=== PATIENT | male | born 1950 | race Caucasian/White ===

== ENCOUNTER 2020-05-22 10:50 | Outpatient (CLI) | payer MEDICARE, OTHER, SELFPAY ==
--- NOTE | ~2020-05-22 | US_ITS ---
EXAMINATION: US carotid duplex BI DATE: 05/22/2020 11:18 INDICATION: Carotid stenosis. TECHNIQUE: Grayscale, color Doppler, and pulsed Doppler images of the cervical carotid arteries were obtained. The degree of vessel stenosis is placed in one of the following categories: normal, <50%, 5 0-69%, >=70% but less than near-occlusion, near-occlusion, or total occlusion. Note that percent sten osis relative to normal distal artery lumen diameter is indirectly measured from velocity measurement s as described by Lukas, et al. Radiology 2003; 229:[id number]. COMPARISON: None. FINDINGS: RIGHT: The right common carotid artery (CCA) peak systolic velocity (PSV) is 68 cm/s. The right internal car otid artery (ICA) PSV is 59 cm/s. The right ICA end-diastolic velocity (EDV) is 17 cm/s. The right IC A/CCA PSV ratio is 0.9. Grayscale and color Doppler images yield an estimate of <50% diameter reducti on from plaque in the ICA. The external carotid artery (ECA) PSV is 95 cm/s. There is antegrade flow in the right vertebral artery. LEFT: The left CCA PSV is 63 cm/s. The left ICA PSV is 85 cm/s. The left ICA EDV is 29 cm/s. The left ICA/C CA PSV ratio is 1.4. Grayscale and color Doppler images yield an estimate of <50% diameter reduction from plaque in the ICA. The ECA PSV is 85 cm/s. There is antegrade flow in the left vertebral artery. IMPRESSION: 1. <50% stenosis in the right internal carotid artery. 2. <50% stenosis in the left internal carotid artery. Reviewed, dictated and finalized at location A. [employer]
== END 2020-05-22 10:51 | disposition home or self-care (01) ==
LOC: CHSIMG 10:57
PROVIDERS: PCP Internal Medicine; Visit Provider Internal Medicine
DX: I65.22 Occlusion and stenosis of left carotid artery (principal)
CPT/HCPCS: 93880

== ENCOUNTER 2020-12-04 07:37 | Outpatient (CLI) | payer MEDICARE, OTHER, SELFPAY ==
--- NOTE | ~2020-12-04 | XR_ITS ---
EXAMINATION: XR lumbar spine 2-3V DATE: 12/04/2020 08:04 INDICATION: Low back pain TECHNIQUE: Anteroposterior and lateral views of the lumbar spine, and cone-down lateral view of the l umbosacral junction were obtained. COMPARISON: None. FINDINGS: There are 2 mm of retrolisthesis of L5 on S1. Bone alignment is otherwise normal. There is moderate loss of intervertebral disc space height throughout the lumbar spine and severe disc space l oss at L5-S1. The vertebral body heights are maintained. There is moderate multilevel facet osteoarth ritis. Small degenerative osteophytes project from the anterior endplates of multiple vertebral isabell s. Calcified atherosclerosis is noted. IMPRESSION: 1. Moderate lumbar spondylosis without acute findings. Reviewed, dictated and finalized at location A.
--- NOTE | ~2020-12-04 | US_ITS ---
US arterial ankle brachial ind INDICATION: Peripheral arterial disease. Hip pain. TECHNIQUE: Segmental pressures and plethysmographic and Doppler waveforms of the brachial and lower e xtremity arteries were obtained. COMPARISON: None. FINDINGS: Right and left brachial artery pressures of 138 mm Hg and 150 mm Hg, respectively, are concordant (no rmal difference <= 30 mmHg). The right ankle-brachial index (ROSAURA) is 1.14 (normal >= 0.9-1.0). The right great toe-brachial index (TBI) is 0.81 (normal >= 0.60). The left ROSAURA is 1.04. The left TBI is 0.68. IMPRESSION: 1. Normal bilateral ankle and toe brachial indices. Reviewed, dictated and finalized at location B.
--- NOTE | ~2020-12-04 | XR_ITS ---
EXAMINATION: XR hip BI wo pelvis INDICATION: Bilateral hip pain TECHNIQUE: Two views of each hip are obtained. COMPARISON: None available FINDINGS: Bone alignment is normal. There is no fracture. Calcified atherosclerosis is noted. There a re phleboliths in the pelvis. IMPRESSION: 1. No acute osseous abnormality. Reviewed, dictated and finalized at location A.
--- NOTE | ~2020-12-04 | US_ITS ---
EXAMINATION: US aorta DATE: 12/04/2020 08:57 INDICATION: Aortic aneurysm with risk factors of hypertension, obesity, hypercholesterolemia, prior s moking and intermittent claudication. TECHNIQUE: Grayscale, color Doppler, and pulsed Doppler images of the aorta and common iliac arteries were obtained. COMPARISON: None. FINDINGS: The proximal aorta measures 1.9 cm. The mid aorta measures 2.5 cm. The distal aorta measures 2.3 cm. The region of the aortic bifurcation and bilateral iliac arteries is obscured by shadowing bowel gas. IMPRESSION: 1. Normal caliber abdominal aorta. Reviewed, dictated and finalized at location A.
== END 2020-12-04 07:38 | disposition home or self-care (01) ==
LOC: CHSIMG 07:38
PROVIDERS: PCP Internal Medicine; Visit Provider Internal Medicine
DX: I73.9 Peripheral vascular disease, unspecified (principal); M25.552 Pain in left hip; M25.551 Pain in right hip
CPT/HCPCS: 72100; 73521; 76775; 93922

== ENCOUNTER 2020-12-11 07:15 | Outpatient (CLI) | payer MEDICARE, OTHER, SELFPAY ==
--- NOTE | ~2020-12-11 | MR_ITS ---
EXAMINATION: MR lumbar spine wo con EXAM DATE: 12/11/2020 12:13 INDICATION: Low back pain for 15 years. Lower extremity numbness and tingling for 5 years. TECHNIQUE: Multi-sequential, multiplanar MR images of the lumbar spine were obtained without contrast . Sagittal T1, T2, T2 fat saturation images. Axial T2 weighted images. There is no prior study for comparison. FINDINGS: There is 3 mm retrolisthesis L5 on S1 with moderate to severe loss of this disc height. Mod erate loss of the other lumbar disc heights. The vertebral bodies are otherwise aligned. The conus me dullaris terminates at the L1/2 level and has normal signal intensity and morphology. There are no s uspicious marrow signal abnormalities. There is lower abdominal aortic aneurysm measuring up to about 4 cm in diameter. Level by level evaluation: T12-L1: Disc does not extend beyond the endplate margin. Facet arthropathy: Mild. Neural foraminal stenosis: No stenosis. Central canal stenosis: No stenosis. L1-L2: There is a mild diffuse disc bulge. Facet arthropathy: Mild to moderate. Neural foraminal stenosis: No stenosis. Central canal stenosis: No stenosis. L2-L3: There is a mild to moderate diffuse disc bulge. Facet arthropathy: Mild to moderate. Neural foraminal stenosis: Mild bilateral. Central canal stenosis: Mild. L3-L4: There is a moderate diffuse disc bulge. Facet arthropathy: Mild to moderate. Neural foraminal stenosis: Mild to moderate bilateral. Central canal stenosis: Mild to moderate. L4-L5: There is a moderate diffuse disc bulge. Facet arthropathy: Moderate left, mild to moderate right. Neural foraminal stenosis: Moderate left, mild to moderate right. Central canal stenosis: Mild to moderate. L5-S1: There is a mild to moderate diffuse disc bulge. Facet arthropathy: Moderate bilateral. Neural foraminal stenosis: Moderate left, mild to moderate right. Central canal stenosis: Mild. IMPRESSION: 1. Abdominal aortic 4.0 cm aneurysm. Assuming this is incidentally, one-year follow-up CT abdomen (n oncontrast scan sufficient for evaluating aortic size). 2. Overall moderate lumbar spondylosis. Reviewed, dictated and finalized at location A. IMPRESSION: 1. Abdominal aortic 4.0 cm aneurysm. Assuming this is incidentally, one-year f ollow-up CT abdomen (noncontrast scan sufficient for evaluating aortic size). 2. Overall moderate lumbar spondylosis.
== END 2020-12-11 07:16 | disposition home or self-care (01) ==
LOC: CHSIMG 07:16
PROVIDERS: PCP Internal Medicine; Visit Provider Internal Medicine
DX: M54.5 Low back pain (principal)
CPT/HCPCS: 72148

== ENCOUNTER 2021-02-19 05:54 | Inpatient (IN) | payer MEDICARE, OTHER, SELFPAY ==
[2021-02-19] VITALS (20 sets, daily range): BP systolic 126–157; BP diastolic 69–99; PULSE 72–109; RESP 13–23; TEMP 35.9–36.9; O2SAT 91–96; BMI 38.2; BMI 38.3
--- NOTE | ~2021-02-19 | CT_ITS ---
EXAMINATION: CT abdomen pelvis w con EXAM DATE: 02/19/2021 08:56 INDICATION: LLQ pain . TECHNIQUE: Spiral CT of the abdomen and pelvis was performed following intravenous injection of 100 m L Omnipaque 350. Axial, coronal and sagittal images of the abdomen and pelvis were reviewed. The do se-length product (DLP) for this examination was 1496.41 mGy-cm. The exposure was tailored according to patient size (auto mA exposure control), and iterative reconstruction (ASIR) was used as addition al dose reduction technique. There is no prior study for comparison. FINDINGS: The liver, spleen, adrenal glands and pancreas are unremarkable. Gallbladder is unremarkab le. No biliary obstruction. Portal and splenic veins are patent. Kidneys enhance symmetrically. T here is no hydronephrosis. There is a 2 cm homogeneously hyperdense lesion in the lower pole of the l eft kidney posteromedial cortex, similar density smaller lesion lower pole right kidney. These are mo st likely hemorrhagic cysts but ultrasound should be confirmatory of fluid versus solid mass. The pr ostate is unremarkable. Small right inguinal fat-containing hernia. The bladder is unremarkable. Th ere is no retroperitoneal or pelvic lymphadenopathy. There is a peripherally hyperdense centrally low density structure within the mid ileum with moderate ly distended small bowel proximal to this and nearly collapsed ileum distal (axial image 145-150, cor onal images 55-62). This is irregularly shaped, measures about 2.5 cm. Appearance is most consistent with gallstone ileus or obstruction from other foreign body-gallbladder is unremarkable. There is jejunal diverticulosis. There is appendicolith within an otherwise unremarkable appendix. Th ere is moderate sigmoid predominant colonic diverticulosis. There is no adjacent inflammatory change to suggest diverticulitis. There is small amount of colonic stool. No free intraperitoneal gas. The heart is normal in size. There are no pericardial or pleural effusions. The lung bases are unre markable. There are no osteoblastic or osteolytic lesions identified. IMPRESSION: 1. Dilated small bowel with intraluminal filling defect at transition point, could be gallstone ileus or obstruction from other foreign body. 2. Colonic and jejunal diverticulosis. 3. Couple of small renal lesions most likely hemorrhagic cyst. Ultrasound should be confirmatory. Reviewed, dictated and finalized at location A. IMPRESSION: 1. Dilated small bowel with intraluminal filling defect at transition point, co uld be gallstone ileus or obstruction from other foreign body. 2. Colonic and jejunal diverticulosis. 3. Couple of small renal lesions most likely hemorrhagic cyst. Ultrasound shoul d be confirmatory.
--- NOTE | ~2021-02-19 | XR_ITS ---
EXAMINATION: XR abdomen NG/feed tube insert EXAM DATE: 02/19/2021 10:20 INDICATION: ng placement confirmation . Small bowel obstruction, possibly from gallstone (gallstone i leus). TECHNIQUE: Frontal projection(s) of the abdomen for interpretation. There is no prior study for ever lucero. FINDINGS: Feeding tube tip overlies gastric bubble. Side port is at the gastroesophageal junction. C ould be safely advanced 5 cm. Several loops of significantly distended air-filled small bowel in the abdomen, obstruction. Mild to moderate thoracolumbar spondylosis. IMPRESSION: 1. Feeding tube tip in stomach but could be safely advanced 5 cm. 2. Small bowel obstruction. Reviewed, dictated and finalized at location A.
--- NOTE | ~2021-02-19 | XR_ITS ---
EXAMINATION: XR abdomen/kub 1V DATE: 02/20/2021 05:49 INDICATION: Small bowel obstruction. TECHNIQUE: A supine view of the abdomen on 2 radiographs was obtained. COMPARISON: CT abdomen and pelvis 03/21/2021 FINDINGS: There are multiple dilated loops of small bowel containing oral contrast. The colon is deco mpressed. The nasogastric tube tip is in the stomach. IMPRESSION: 1. Persistently dilated small bowel, consistent with small bowel obstruction. Reviewed, dictated and finalized at location A.
--- NOTE | ~2021-02-19 | XR_ITS ---
EXAMINATION: XR sm bowel follow through WS EXAM DATE: 02/19/2021 17:06 INDICATION: Small bowel obstruction, possibly gallstone ileus. TECHNIQUE: Recooperer radiograph was acquired. Omnipaque/water soluble solution administered for small karolina wel exam performed by radiologist Papo Harper M.D.. Approximately 350 mL of Omnipaque 350 solution wa s injected through nasogastric tube. Pulsed dose reduction fluoroscopy was used with fluoroscopic ti me of 0.0. Images were obtained over 5.5 hours. A total of 11 images obtained for the exam. Correlati on is made to CT abdomen pelvis earlier same date. FINDINGS: There is severe small bowel dilation. The jejunal loops progressively opacified over 5.5 ho urs, but contrast did not reach the colon. Could not identify any normal calibered small bowel at the final image. Consider obtaining a follow-up KUB in the morning. There is jejunal diverticulosis. IMPRESSION: Small bowel obstruction. Jejunal diverticulosis. Reviewed, dictated and finalized at location A.
[2021-02-19] MEDS: SODIUM CHLORIDE 0.9% IV 1,000 ML 999 ML IV CONT (06:49)
[2021-02-19] MEDS: ONDANSETRON INJ 4 MG/2 ML VIAL IV PUSH (06:50)
[2021-02-19 07:10] LABS: Basophils Percent Auto 0.2 % (0.2-1.2); Immature Granulocyte Absolute 0.04 K/mm3 (0.00-0.031); Immature Granulocyte Percent A 0.4 % (0-0.5); Lymphocytes Absolute Auto 0.58 K/mm3 (0.9-3.2); Lymphocytes Percent Auto 5.9 % (18.3-44.2); Mean Corpuscular Hemoglobin 31.1 pg (26-34); Mean Corpuscular Volume 91.3 fl (80-100); Mean Platelet Volume 11.5 fl (7.4-10.4); Monocytes Absolute Auto 0.6 K/mm3 (0.1-0.6); Monocytes Percent Auto 6.5 % (2.6-8.5); Neutrophils Absolute Auto 8.5 K/mm3 (1.3-6.7); Platelet Count Result 178 k/mm3 (150-375); Red Blood Count 5.15 M/mm3 (4.6-6.20); White Blood Count 9.8 K/mm3 (4.5-10.0)
[2021-02-19 07:41] LABS: INR 1.2; Partial Thromboplastin Time 29.2 SECONDS (22.3-36.8); Prothrombin Time 15.1 Seconds (11.1-14.7)
--- NOTE | 2021-02-19 07:50 | ED.ABDPAIN ---
HPI - Abdominal Pain General Chief Complaint: Abdominal Pain Stated Complaint: bad stomach pains Time Seen by Provider: 02/19/21 07:02 History of Present Illness HPI narrative: Patient is a 71-year-old male who presents ER with abdominal discomfort starting yesterday. Reports its diffuse and cramping. Has focal pain in the left lower quadrant. No radiation. Feels like he is constipated but has had a small bowel movement last 24 hours. No increase in belching. No fevers or chills or sweats. Symptoms started 12 hours after having [employer] for dinner. He ate the riblets. Has history of colonoscopies but denies history of diverticulitis. No urinary frequency urgency or dysuria. Without hematuria. Related Data Home Medications Medication Instructions Recorded Confirmed amlodipine 2.5 mg DAILY 02/19/21 02/19/21 apixaban [Eliquis] 5 mg PO BID 02/19/21 02/19/21 atorvastatin 40 mg DAILY 02/19/21 02/19/21 hydrochlorothiazide 12.5 mg DAILY 02/19/21 02/19/21 lisinopril 40 mg BID 02/19/21 02/19/21 metoprolol tartrate 100 mg BID 02/19/21 02/19/21 Allergies Allergy/AdvReac Type Severity Reaction Status Date / Time No Known Allergies Allergy Verified 02/19/21 06:18 Review of Systems Review of Systems: All systems reviewed & are unremarkable except as noted in HPI and below Constitutional: Constitutional: Denies chills and Denies fever(s) ENT: Denies nasal congestion and Denies sore throat Cardiovascular: Cardiovascular: Denies chest pain and Denies radiating jaw, neck or arm pain Respiratory: Respiratory: Denies cough, Denies dyspnea and Denies wheezing Gastrointestinal: Gastrointestinal: Reports abdominal pain, Reports bloating, Reports constipation, Denies diarrhea, Denies nausea and Denies vomiting Genitourinary: Genitourinary: Denies hematuria, Denies dysuria and Denies urinary frequency PMF Past Medical History Medical History Atrial fibrillation Hyperlipidemia Hypertension Surgical History Surgical History No history of previous surgery Social History Social History Smoking status: Former smoker Tobacco type: cigarettes Second hand tobacco smoke exposure: No Alcohol intake: never Substance use: never Spiritual care concerns: No Exam Narrative: GENERAL: Well-appearing, well-nourished, and in no acute distress. HEAD: Normocephalic, atraumatic. ENT: Mucous membranes moist. CHEST: Clear to auscultation. No respiratory distress. HEART: Regular rate and rhythm. Normal peripheral pulses. ABDOMEN: Soft, TTP LLQ w/o guarding, nondistended. EXTREMITIES: Normal range of motion. No edema. SKIN: Warm, dry, no rash. NEURO: Alert and oriented x3. PSYCH: Normal mood and affect. Course Course Emergency Course: Discussed with general surgery who would like to consult on the patient. NG tube in place. Admitted to hospitalist service. Vital Signs Vital signs: Vital Signs Temperature 97.7 F 02/19/21 06:09 Pulse Rate 81 02/19/21 06:09 Respiratory Rate 22 H 02/19/21 06:09 Blood Pressure 157/99 H 02/19/21 06:09 Pulse Oximetry 95 02/19/21 06:09 Temperature 98.5 F 02/19/21 14:00 Pulse Rate 87 02/19/21 14:00 Respiratory Rate 20 02/19/21 14:00 Blood Pressure 130/75 02/19/21 14:00 Pulse Oximetry 91 02/19/21 14:00 MDM - Abdominal Pain Lab Data Result diagrams: 02/19/21 06:49 02/19/21 07:44 Labs: Lab Results 02/19/21 02/19/21 02/19/21 Range/Units 06:49 06:49 07:31 WBC 9.8 (4.5-10.0) K/mm3 RBC 5.15 (4.6-6.20) M/mm3 Hgb 16.0 (14.0-18.0) g/dL Hct 47.0 (42.0-52.0) % MCV 91.3 (80-100) fl MCH 31.1 (26-34) pg MCHC 34.0 (32-36) g/dl RDW 13.0 (11.5-14.5) % Plt Count 178 (150-375) k/mm3 MPV 11.5 H (7.4-10.4) fl Immature Gr
[2021-02-19 07:58] LABS: Add Urine Microscopic? YES; Appearance Urine Clear (Clear); Bilirubin Urine Negative (Negative); Blood Urine Negative (Negative); Calcium Oxalate Crystals Urine Present /hpf; Color Urine Yellow (Yellow); Glucose Urine UA Negative (Negative); Hyaline Casts Urine 20-29 /lpf; Ketones Urine Negative (Negative); Leukocyte Esterase Ur Negative LEU/UL (Negative); Mucus Urine Few /lpf; Nitrate Urine Negative (Negative); Protein Urine 1+ mg/dL (Negative); Specific Grav Ur 1.027 (1.001-1.035); WBC Urine 0-3 /hpf
[2021-02-19] MEDS: MORPHINE SULFATE (*CRX) 4 MG/ML INJ IV PUSH ×3 (08:08→16:17)
[2021-02-19 08:15] LABS: Alanine Aminotransferase 23 U/L (4-50); Albumin Level 3.9 g/dL (3.5-5.1); Alkaline Phosphatase 59 U/L (38-126); Anion Gap 9 mmol/L (8-16); Aspartate Amino Transferase 23 U/L (17-59); Bilirubin,Total 1.6 mg/dL (0.2-1.3); Blood Urea Nitrogen 25 mg/dL (9-20); Calcium 9.5 mg/dL (8.4-10.2); Carbon Dioxide 27 mmol/L (22-30); Chloride 98 mmol/L (98-107); Estimated CRCL calculation 89 ml/min; Estimated Glomerular Filt Rate > 60; Glucose 146 mg/dL (65-110); Lipase 34 U/L (23-300); Sodium 134 mmol/L (137-145)
--- NOTE | 2021-02-19 10:35 | PM.CNGS ---
Assessment and Plan Assessment and plan (1) Small bowel obstruction: Code(s): K56.609 - Unspecified intestinal obstruction, unspecified as to partial versus complete obstruction Status: Acute Assessment and Plan: likely from foreign body (?bone), looks to be in proximal ileum, will get SBS, GI consult, NG decompression (2) Atrial fibrillation: Code(s): I48.91 - Unspecified atrial fibrillation Status: Acute Assessment and Plan: hold anticoagulation for now (3) AAA (abdominal aortic aneurysm): Code(s): I71.4 - Abdominal aortic aneurysm, without rupture Status: Acute Assessment and Plan: following c vascular surgery History of Present Illness Consult details Consult date: 02/19/21 Reason for consult: abdominal pain Requesting physician: Willie Nassar MD Narrative: Pt is a 71 y/o M presenting to ED c/o severe, crampy abdominal pain since last night. Pt reports pain is most severe in lower abdomen, L>R. Pt reports associated nausea and emesis x 1. Pt did have small BM overnight. Pt reports he had riblets at [employer] for dinner yesterday. Pt denies any previous episodes, denies any previous abdominal surgeries. Review of Systems Constitutional: Constitutional: Denies anorexia, Denies body ache(s), Denies chills, Denies fatigue, Denies fever(s), Denies increased appetite, Denies lethargy, Denies malaise, Reports poor appetite, Denies weakness, Denies weight gain and Denies weight loss Eyes: Eyes: Reports no additional eye complaints ENT: Reports system reviewed and no additional complaints, except as documented Cardiovascular: Cardiovascular: Reports no additional cardiovascular complaints Respiratory: Respiratory: Reports no additional respiratory complaints Gastrointestinal: Gastrointestinal: Reports as per HPI, Reports abdominal pain, Denies belching, Reports bloating, Reports constipation, Reports GI cramping, Reports nausea, Reports vomiting and Denies hematemesis Genitourinary: Genitourinary: Reports no additional male genitourinary complaints Musculoskeletal: Musculoskeletal: Reports no additional musculoskeletal complaints Integumentary/Breasts: Skin/Breast: Reports system reviewed and no additional complaints, except as docu Neurologic: Reports system reviewed and no additional complaints, except as documented Psychiatric: Psychiatric: Reports no additional psychiatric complaints Endocrine: Endocrine: Reports no additional endocrine complaints Hematologic/Lymphatic: Hematologic/Lymphatic: Reports no additional hematologic/lymphatic complaints Allergic/Immunologic: Allergic/Immunologic: Reports no additional allergic/immunologic complaints [facility] Past Medical History Medical History Atrial fibrillation Hyperlipidemia Hypertension Surgical History Surgical History No history of previous surgery Social History Social History Smoking status: Never smoker Comments Pt denies any FH of colorectal cancers, inflammatory bowel disease Meds Home Medications and Allergies Home Medications Medication Instructions Recorded Confirmed Type amlodipine 2.5 mg DAILY 02/19/21 History apixaban [Eliquis] mg 02/19/21 History atorvastatin 40 mg DAILY 02/19/21 History hydrochlorothiazide 12.5 mg DAILY 02/19/21 02/19/21 History lisinopril 40 mg DAILY 02/19/21 History metoprolol tartrate 100 mg BID 02/19/21 History Allergies Allergy/AdvReac Type Severity Reaction Status Date / Time No Known Allergies Allergy Verified 02/19/21 06:18 Vital Signs Vital Signs - 24 hr 02/19/21 06:09 02/19/21 06:46 02/19/21 06:47 Temperature 36.5 C Pulse Rate 81 78 77 Respiratory Rate 22 H 23 H 19 Blood Pressure 157/99 H 129/91 H Pulse Oximetry 95 95 02/19/21 07:00 02/19/21 07:01
[2021-02-19] MEDS: SODIUM CHLORIDE 0.9% IV 1,000 ML 125 ML IV CONT ×2 (10:38→21:09)
--- NOTE | 2021-02-19 11:05 | PC.NURSE ---
Pt to radiology for small bowel series and then directly to 344. Attempted to call report and the nurse was unavailable to take report. Staff advised that pt will be coming to floor from radiology.
--- NOTE | 2021-02-19 11:09 | PM.IMHP ---
H&P: HPI History of Present Illness Date/Time: 02/19/21 11:09 Chief Complaint: Abdominal pain Narrative: This is a very pleasant 71-year-old gentleman with past medical history of hypertension, hyperlipidemia, atrial fibrillation, and history TIA, who presents to the emergency room this morning with abdominal pain. He reports he was in his usual state of health but 2 nights ago he had a good dinner with ribs. Next morning he started feeling abdominal pain. This was associated with some intermittent nausea and vomiting. Given continued pain, he presented to the emergency department this morning. On presentation his vitals were blood pressure 157/99 heart rate 81, temperature 97.7?, pulse ox 95% on room air. Blood work showed WBC 9.8, hemoglobin 16, platelets 178, sodium 134, potassium 4, chloride 90, bicarb 27, BUN 25, creatinine 0.8, calcium 9.5, total bilirubin 1.6, otherwise normal LFTs. He underwent CT scan of the abdomen that showed dilated small-bowel loops with intraluminal filling defect a transition point, could be a gallstone ileus vs foreign body. Colonic and jejunal diverticulosis. He was seen by General surgery, NG tube was placed and is currently on low intermittent suction. Review of Systems Review of Systems: All systems reviewed & are unremarkable except as noted in HPI and below PMFSH Past Medical History Medical History (Updated 02/20/21 @ 14:17 by Oscar Mcdonald MD) AAA (abdominal aortic aneurysm) Atrial fibrillation CVA (cerebral vascular accident) 2016 Hyperlipidemia Hypertension Surgical History Surgical History No history of previous surgery Social History Social History Smoking status: Former smoker Tobacco type: cigarettes Second hand tobacco smoke exposure: No Alcohol intake: never Substance use: never Spiritual care concerns: No Meds Home Medications and Allergies Home Medications Medication Instructions Recorded Confirmed Type amlodipine 2.5 mg DAILY 02/19/21 02/20/21 History apixaban [Eliquis] 5 mg PO BID 02/19/21 02/19/21 History atorvastatin 40 mg DAILY 02/19/21 02/19/21 History hydrochlorothiazide 12.5 mg DAILY 02/19/21 02/19/21 History lisinopril 40 mg BID 02/19/21 02/19/21 History metoprolol tartrate 100 mg BID 02/19/21 02/20/21 History Allergies Allergy/AdvReac Type Severity Reaction Status Date / Time No Known Allergies Allergy Verified 02/19/21 06:18 Vital Signs Vital Signs - 24 hr 02/19/21 06:09 02/19/21 06:46 02/19/21 06:47 Temperature 97.7 F Pulse Rate 81 78 77 Respiratory Rate 22 H 23 H 19 Blood Pressure 157/99 H 129/91 H Pulse Oximetry 95 95 02/19/21 07:00 02/19/21 07:01 02/19/21 07:15 Temperature Pulse Rate 73 83 94 Respiratory Rate 13 18 18 Blood Pressure 141/88 H Pulse Oximetry 02/19/21 07:16 02/19/21 07:30 02/19/21 07:45 Temperature Pulse Rate 76 72 84 Respiratory Rate 14 17 19 Blood Pressure 132/85 Pulse Oximetry 02/19/21 07:46 02/19/21 07:47 02/19/21 08:00 Temperature Pulse Rate 75 86 86 Respiratory Rate 14 23 H 23 H Blood Pressure Pulse Oximetry 02/19/21 08:01 02/19/21 08:04 02/19/21 11:07 Temperature Pulse Rate 75 84 Respiratory Rate 20 16 Blood Pressure 148/85 H 137/88 Pulse Oximetry 96 Exam Narrative: Gen: Alert, NAD Abd: Soft, mildly TTP diffusely, BS+ Heart: RRR Lungs: CTAB Ext: No bilateral lower extremity edema Skin: No abnormality Eyes: anicteric ENT: MMM H&P: Results Labs Labs: Short CBC 02/19/21 Range/Units 06:49 WBC 9.8 (4.5-10.0) K/mm3 Hgb 16.0 (14.0-18.0) g/dL Hct 47.0 (42.0-52.0) % Plt Count 178 (150-375) k/mm3 BMP 02/19/21 07:44 Sodium 134 L Potassium 4.0 Chloride 98 Carbon Dioxide 27 BUN 25 H Creatinine 0.80 Glucose 146 H Calcium 9.5 Liver Function 02/19/21 R
--- NOTE | 2021-02-19 12:54 | ADMGEN ---
This patient, Diego Hall, was admitted to Medical Room 344-01. Patient oriented to hospital policies and general routines including ID bracelet, bed and alarms, visiting hours, pain management, procedures, bathroom and other care routines, personal items, smoking policy, room service/diet, and visiting hours. Information on how to activate the Rapid Response Team has been discussed. Patient/Family are encouraged to report perceived risks to care and to ask questions if they do not understand what they are told or what they should do.
[2021-02-19] MEDS: LABETALOL HCL INJ 100 MG/20 ML VIAL 20 MG IV PUSH ×2 (13:52→17:54)
--- NOTE | 2021-02-19 14:35 | WPDGICN ---
Assessment and Plan Assessment and plan (1) Small bowel obstruction: Code(s): K56.609 - Unspecified intestinal obstruction, unspecified as to partial versus complete obstruction Status: Acute Assessment and Plan: he had 1 episode of vomiting. He has continuing abdominal pain consistent with possible obstruction. There is a transition point with dilated small bowel proximal to the apparent foreign body. If this is some sort of food I would expected to have autodigested by now. Small-bowel series is in progress. This may help us determine whether he has perhaps a fixed lesion such as hamartoma, polyp, neoplasm. However I would have expected a less acute and more fluctuating onset of symptoms if he had a growth in his ileum. Surgery is following him in it appears that he will need some sort of surgical intervention to resolve this. I explained to him that endoscopic approach is not feasible because of the location. GI Consult Note Consult date/time: 02/19/21 14:35 HPI: Diego Hall is a 71 year old male was admitted this morning through the emergency room. He states that for 3 days he has had pain in the mid abdomen, somewhat towards the left. The pain fluctuates but is fairly constant; he also has lost his appetite. He has not felt like eating at all for the last day or 2. He did vomit once or twice 2 days ago bringing up dark almost coffee-ground type material. He has never had an ulcer. He has not had any digestive diseases. He has had colonoscopies but is not sure whether he had had polyps removed. His symptoms began hours after he had eaten at a restaurant where he had eaten 'riblets' and he is jeannette He is on Eliquis for atrial fibrillation that he may have swallowed a bone. His CT scan that show a foreign body in the mid ileum and this is also seen on a subsequent plain film. He denies fever or chills. He is not aware of any family history of digestive diseases except for the fact that his sister from some sort of liver cancer. Review of Systems Review of Systems: All systems reviewed & are unremarkable except as noted in HPI and below [facility] Past Medical History Medical History Atrial fibrillation Hyperlipidemia Hypertension Surgical History Surgical History No history of previous surgery Social History Social History Smoking status: Former smoker Tobacco type: cigarettes Second hand tobacco smoke exposure: No Alcohol intake: never Substance use: never Spiritual care concerns: No Meds Home Medications and Allergies Home Medications Medication Instructions Recorded Confirmed Type amlodipine 2.5 mg DAILY 02/19/21 02/19/21 History apixaban [Eliquis] 5 mg PO BID 02/19/21 02/19/21 History atorvastatin 40 mg DAILY 02/19/21 02/19/21 History hydrochlorothiazide 12.5 mg DAILY 02/19/21 02/19/21 History lisinopril 40 mg BID 02/19/21 02/19/21 History metoprolol tartrate 100 mg BID 02/19/21 02/19/21 History Allergies Allergy/AdvReac Type Severity Reaction Status Date / Time No Known Allergies Allergy Verified 02/19/21 06:18 Vital Signs Vital Signs - 24 hr 02/19/21 06:09 02/19/21 06:46 02/19/21 06:47 Temperature 36.5 C Pulse Rate 81 78 77 Respiratory Rate 22 H 23 H 19 Blood Pressure 157/99 H 129/91 H Pulse Oximetry 95 95 02/19/21 07:00 02/19/21 07:01 02/19/21 07:15 Temperature Pulse Rate 73 83 94 Respiratory Rate 13 18 18 Blood Pressure 141/88 H Pulse Oximetry 02/19/21 07:16 02/19/21 07:30 02/19/21 07:45 Temperature Pulse Rate 76 72 84 Respiratory Rate 14 17 19 Blood Pressure 132/85 Pulse Oximetry 02/19/21 07:46 02/19/21 07:47 02/19/21 08:00 Temperature Pulse Rate 75 86 86 Respiratory Rate 14 23 H 23 H Blood Pressure Pulse Oximetry
[2021-02-20] VITALS (19 sets, daily range): BP systolic 122–161; BP diastolic 67–127; PULSE 77–108; RESP 12–20; TEMP 36–37.2; O2SAT 90–99
[2021-02-20] MEDS: LABETALOL HCL INJ 100 MG/20 ML VIAL 20 MG IV PUSH ×2 (00:31→17:41)
[2021-02-20] MEDS: SODIUM CHLORIDE 0.9% IV 1,000 ML 125 ML IV CONT ×2 (05:06→17:35)
[2021-02-20 07:30] LABS: Anion Gap 7 mmol/L (8-16); Blood Urea Nitrogen 33 mg/dL (9-20); Calcium 9.5 mg/dL (8.4-10.2); Carbon Dioxide 33 mmol/L (22-30); Chloride 96 mmol/L (98-107); Estimated CRCL calculation 80 ml/min; Estimated Glomerular Filt Rate > 60; Glucose 167 mg/dL (65-110); Potassium 3.8 mmol/L (3.4-5.0); Sodium 136 mmol/L (137-145)
--- NOTE | 2021-02-20 08:40 | PM.PNGS ---
Progress Note: A&P Assessment and Plan (1) Small bowel obstruction: Code(s): K56.609 - Unspecified intestinal obstruction, unspecified as to partial versus complete obstruction Status: Acute Assessment and Plan: SBS shows no passage of contrast into colon, will need urgent exploration at this point, cont NG decompression, NPO Subjective Subjective Date/Time Seen: 02/20/21 08:40 feels better this am, really no pain, still distended Review of Systems Review of Systems: All systems reviewed & are unremarkable except as noted in HPI and below Exam Const: General: cooperative, well developed, acute distress mild and tired appearing Nutritional Appearance: obese Orientation/consciousness: patient oriented x3 Limitations: no limitations Resp: Effort & Inspection: normal respiratory effort Auscultation: clear to auscultation bilaterally Cardio: Rate: regular rate Rhythm: regular rhythm GI: Inspection: normal to inspection and distended GI Palp: Yes Soft to palpation and No Tenderness to palpation present (GI) Objective Data Vital Signs Vital Signs: Vital Signs - 24 hr 02/19/21 11:07 02/19/21 13:52 02/19/21 14:00 Temperature 36.9 C Pulse Rate 84 80 87 Respiratory Rate 16 20 Blood Pressure 137/88 130/75 Pulse Oximetry 96 91 02/19/21 17:51 02/19/21 17:54 02/19/21 19:42 Temperature 35.9 C L Pulse Rate 109 H 104 H 80 Respiratory Rate 16 16 Blood Pressure 141/90 H 126/69 Pulse Oximetry 94 93 02/20/21 00:29 02/20/21 00:31 02/20/21 05:06 Temperature 36.0 C L Pulse Rate 85 85 Respiratory Rate 18 Blood Pressure 122/82 124/67 Pulse Oximetry 91 02/20/21 05:09 Temperature Pulse Rate 85 Respiratory Rate Blood Pressure Pulse Oximetry Intake/Output Intake/Output: Intake & Output 02/17/21 02/18/21 02/19/21 02/20/21 23:59 23:59 23:59 23:59 Intake Total 2100 1100 Output Total 1200 2000 Balance 900 -900 Meds/Results Medications: Active Medications Generic Name Dose Route Start Last Admin Trade Name Freq PRN Reason Stop Dose Admin Acetaminophen 1,000 mg in 100 mls @ 400 mls/hr 02/19/21 09:59 09/09/21 05:29 Ofirmev 1,000 Mg Ivpb IVPB 02/20/21 09:58 Infused Q6H PRN Infusion Mild Pain (1-3) or Fever Sodium Chloride 1,000 mls @ 125 mls/hr 02/19/21 10:00 02/20/21 05:06 Normal Saline Iv IV CONT 125 mls/hr .Q8H SEVEN Administration Labetalol HCl 20 mg 02/19/21 12:00 02/20/21 05:09 Labetalol Hcl Inj 100 Mg/20 Ml Vial IV PUSH Not Given Q6HR SEVEN Morphine Sulfate 4 mg 02/19/21 09:59 02/19/21 16:17 Morphine Sulfate (*Crx) 4 Mg/Ml Inj IV PUSH 4 mg Q2H PRN Administration Pain Rated 7-10 Ondansetron HCl 4 mg 02/19/21 09:59 Ondansetron Inj 4 Mg/2 Ml Vial IV PUSH Q4H PRN Nausea Radiology Results: ITS Impressions Abdomen/Pelvis CT 02/19/21 09:03 IMPRESSION: 1. Dilated small bowel with intraluminal filling defect at transition point, could be gallstone ileus or obstruction from other foreign body. 2. Colonic and jejunal diverticulosis. 3. Couple of small renal lesions most likely hemorrhagic cyst. Ultrasound should be confirmatory. Small Bowel X-Ray 02/19/21 17:09 IMPRESSION: Small bowel obstruction. Jejunal diverticulosis. Abdomen X-Ray 02/20/21 06:48 IMPRESSION: 1. Persistently dilated small bowel, consistent with small bowel obstruction. Labs Labs: Laboratory Results - last 24 hr 02/20/21 06:10 Sodium 136 L Potassium 3.8 Chloride 96 L Carbon Dioxide 33 H Anion Gap 7 L BUN 33 H Creatinine 1.00 Estim Creat Clear Calc 80 Estimated GFR > 60 Glucose 167 H Calcium 9.5
--- NOTE | 2021-02-20 08:46 | PC.NURSE ---
Patient to OR per bed. IV saline locked, NGT clamped. Report given to KEARA Andres.
--- NOTE | 2021-02-20 09:34 | WPDANESEPPF ---
Anes - Initial Pre Proc Eval Procedure: Operation Date: 02/20/21 14:00 Proposed Procedures p Exploratory Laparotomy, Possible Bowel Resection - Margareth West MD Date/Time: 02/20/21 09:34 Surgeon: Adeline Blount MD Pre Op Diagnosis: small bowel obstruction Patient Data Age: 71 Gender: M Height: 1.8 m Weight: 124.7 kg Last Vital Signs Temp 36.8 C 02/20/21 09:04 Pulse 95 02/20/21 09:04 Resp 18 02/20/21 09:04 BP 153/95 H 02/20/21 09:04 Pulse Ox 95 02/20/21 09:04 Allergies Allergy/AdvReac Type Severity Reaction Status Date / Time No Known Allergies Allergy Verified 02/19/21 06:18 Home Medications Medication Instructions Recorded Confirmed Type amlodipine 2.5 mg DAILY 02/19/21 02/19/21 History apixaban [Eliquis] 5 mg PO BID 02/19/21 02/19/21 History atorvastatin 40 mg DAILY 02/19/21 02/19/21 History hydrochlorothiazide 12.5 mg DAILY 02/19/21 02/19/21 History lisinopril 40 mg BID 02/19/21 02/19/21 History metoprolol tartrate 100 mg BID 02/19/21 02/19/21 History Laboratory Tests 02/20/21 06:10 Sodium 136 mmol/L L mmol/L (137-145) Potassium 3.8 mmol/L mmol/L (3.4-5.0) Chloride 96 mmol/L L mmol/L (98-107) Carbon Dioxide 33 mmol/L H mmol/L (22-30) Anion Gap 7 mmol/L L mmol/L (8-16) BUN 33 mg/dL H mg/dL (9-20) Creatinine 1.00 mg/dL mg/dL (0.7-1.3) Estim Creat Clear Calc 80 ml/min ml/min Estimated GFR > 60 (59 - ) Glucose 167 mg/dL H mg/dL (65-110) Calcium 9.5 mg/dL mg/dL (8.4-10.2) Patient hx anesthesia problems: none Family hx anesthesia problems: none [facility] Past Medical History Medical History (Updated 02/20/21 @ 09:35 by Rob Navarrete DO) AAA (abdominal aortic aneurysm) Atrial fibrillation CVA (cerebral vascular accident) 2016 Hyperlipidemia Hypertension Surgical History Surgical History No history of previous surgery Social History Social History Smoking status: Former smoker Tobacco type: cigarettes Second hand tobacco smoke exposure: No Alcohol intake: never Substance use: never Spiritual care concerns: No Anes - Eval Final PreProcedure Day of Procedure 02/20/21 09:34 Patient weight: obese Heart: regular rate and rhythm Lungs: clear to auscultation and normal air movement Airway: Mallampati scale class II Neurological: alert and oriented Last oral intake: >/= 8 hours ASA classification: III Emergent: no Anesthetic plan: proceed Anesthesia type and monitoring: general ETT and standard monitoring Informed Consent: The patient's anesthetic plan and its attendant risks and benefits were discussed with the patient/family/POA. Questions were solicited and answers provided to the satisfaction of the patient/family/POA.
[2021-02-20] MEDS: LACTATED RINGERS 1,000 ML 30 ML IV CONT ×3 (09:54→12:02)
[2021-02-20] MEDS: ceFAZolin 3 GM/D5W 100 ML 100 ML IVPB (10:25)
--- NOTE | 2021-02-20 11:22 | W.PM.PROC2 ---
Procedure Note - Detailed Date of Procedure 02/20/21 Pre-op Diagnosis small bowel obstruction Post-op Diagnosis same Procedure Performed Exploratory laparotomy, small-bowel resection of approximately 10 cm Surgeon Margareth West MD Anesthesia general Indications 71-year-old male presenting to the emergency department with small-bowel obstruction. Imaging consistent with foreign body, food bezoar Findings mechanical obstruction in proximal ileum secondary to likely food bezoar Description of Procedure The patient was taken to the operating room and placed in the supine position. After adequate induction general anesthesia, the patient was prepped and draped in the normal sterile fashion. A time-out was then done to verify the patient's identity, as well as the procedure being performed. I began by making a midline incision in the periumbilical region. This was taken down into the peritoneal cavity. Upon getting into the peritoneum, was noted to be a moderate amount of free ascitic fluid. It was also noted that the small intestine was very dilated. Then began by running the entire small intestine. Again the small intestine was noted to be very dilated especially proximally. Upon examining the proximal ileum, there was noted to be an obstruction at this point. Distal to this obstruction, the small bowel was noted to be much more collapsed and normal in caliber. Examination of the colon was unremarkable. Given the distention especially near the area of obstruction, the decision was made to do a small-bowel resection at this area. A 55 REINIER stapler was used to transect both proximally and distal to the area of obstruction, measuring approximately 10 cm. Once this area was transected, I used the LigaSure device to take down the mesenteric attachments. The specimen was then opened on the back table and the obstructing mass looked to be a food bezoar. It will now be sent to pathology for further review. I then performed a [id number] functional end-to-end anastomosis between the 2 areas of small bowel. Of note, there was some mild spillage during the creation of the anastomosis to to the enormous amount of back pressure in the proximal small intestine. This was done with a 55 REINIER stapler followed by a TX 60 stapler. The mesenteric defect was closed with a 2-0 silk suture. I then copiously irrigated the abdominal cavity. No other pathology was seen. I then closed the fascial defect with a 0 looped PDS suture. The skin was then closed with skin helder. The patient tolerated the procedure well and was extubated in the operating room postoperatively. He will be transferred to the recovery room in stable condition. Estimated Blood Loss 50 Urine Output 100 Drains No Packing No Pathology yes Complications No immediate complications Condition stable Disposition PACU
[2021-02-20] MEDS: fentaNYL CITRATE INJ (*CRX) 100 MCG/2 ML VIAL 25 MCG IV PUSH ×3 (11:34→12:31)
--- NOTE | 2021-02-20 12:25 | SUR.PHASEI ---
1115 AMBER JASSO ADMINISTERED 3 MG METAPROLOL, THEN 2 MG METAPROLOL FOR ELEVATED BP'S WHICH IMPROVED BP.
--- NOTE | 2021-02-20 13:20 | PC.NURSE ---
Patient returned from surgery.
--- NOTE | 2021-02-20 13:52 | PM.IMPN ---
Progress Note: A&P Assessment and Plan (1) Small bowel obstruction: Code(s): K56.609 - Unspecified intestinal obstruction, unspecified as to partial versus complete obstruction Status: Acute Assessment and Plan: Patient presents to the ED with complaints of abdominal pain. CT Abd/Pelvis showing dilated small bowel with intraluminal filling defect at transition point, could be gallstone ileus or obstruction from other foreign body. GI and GS consulted. SBFT showing SBO. GI felt this was too distal to reach endoscopically. Repeat imaging today coninues to show SBO so patient was brought to the OR and underwent exploratory laparotomy with small-bowel resection of approximately 10 cm. Routine post-operative care. Pain management. IS. (2) Atrial fibrillation: Code(s): I48.91 - Unspecified atrial fibrillation Status: Acute Assessment and Plan: No EKGs or Echo performed here. Heart rate remains well controlled. Metoprolol and Eliquis on hold due to surgery and NPO status. Resume metoprolol when he can eat. Hold Eliquis and resume when appropriate. Continue Labetalol. [id number] at least 4. HAS-BLED 1. He is probably high risk for bleeding from the surgery with adding anticoagulation. Bridging recommended with [id number] 5 or 6. Will discuss with GS but hold off for now on full AC. (3) History of TIA (transient ischemic attack): Code(s): Z86.73 - Personal history of transient ischemic attack (TIA), and cerebral infarction without residual deficits Status: Acute Assessment and Plan: Hx of TIA 5 years ago without recurrence. As above. Continue Eliquis when appropriate. (4) Hypertension: Code(s): I10 - Essential (primary) hypertension Status: Acute Assessment and Plan: Patient's blood pressure was reviewed on 02/20 Blood pressure remains well controlled. Will continue current medications as Labetalol. Resume home blood pressure medications when able. (5) Hyperlipidemia: Code(s): E78.5 - Hyperlipidemia, unspecified Status: Acute Assessment and Plan: Stable. Continue home statin when able. (6) AAA (abdominal aortic aneurysm): Code(s): I71.4 - Abdominal aortic aneurysm, without rupture Status: Acute Assessment and Plan: MRI Lumbar spine in November 2020 showing 4.0cm AAA (Ao US not accurate per radiologist). CT here again showing AAA about 4cm with recommendation for 1 year followup. (7) DVT prophylaxis: Code(s): Z29.9 - Encounter for prophylactic measures, unspecified Status: Acute Assessment and Plan: SCDs Subjective Date/time seen: 02/20/21 13:52 Interval history: 71yo male with AFib, HTN and HLD here for abdominal pain and found to have SBO. Back from the OR now. Pain controlled. No n/v. He has chronic AFib. No hx of episodes of bleeding. No CP or SOB but remains on O2. Exam Narrative: AF 98.4 143/79 83 18 92% Gen - NARD lying semirecumbent in bed HEENT - NGT secured with brown fluid in cannister Chest - clear anteriorly, nml RR CV - irregularly irregular Abd - Soft, hypoactive BS, midline dresing clean, dry and intact - Mahan secured draining clear yellow urine Ext - No pedal edema, 2+ PT pulses Neuro - Alert and oriented. Nonfocal exam. Psych - Nml mood and affect Skin - Warm and dry Objective Data Vital Signs Vital Signs: Vital Signs - 24 hr 02/19/21 14:00 02/19/21 17:51 02/19/21 17:54 Temperature 98.5 F Pulse Rate 87 109 H 104 H Respiratory Rate 20 16 Blood Pressure 130/75 141/90 H Pulse Oximetry 91 94 02/19/21 19:42 02/20/21 00:29 02/20/21 00:31 Temperature 96.7 F L Pulse Rate 80 85 Respiratory Rate 16 Blood Pressure 126/69 122/82 Pulse Oximetry 93 02/20/21 05:06 02/20/21 05:09 02/20/21 09:04 Temperature 96.8 F L 98.2 F Pulse Rate 85 85 95 Respiratory Rate 18 18 Blood Pressure 124/67 153/95 H Pulse Oximetry 91 95 09/0
[2021-02-20] MEDS: ONDANSETRON INJ 4 MG/2 ML VIAL IV PUSH (16:46)
[2021-02-20] MEDS: MORPHINE SULFATE (*CRX) 4 MG/ML INJ IV PUSH (16:46)
[2021-02-21] MEDS: LABETALOL HCL INJ 100 MG/20 ML VIAL 20 MG IV PUSH ×4 (00:09→18:07)
[2021-02-21] MEDS: MORPHINE SULFATE (*CRX) 4 MG/ML INJ IV PUSH ×4 (00:10→18:15)
[2021-02-21 04:13] VITALS: BP 144/90; PULSE 87; RESP 18; TEMP 36.1; O2SAT 96
[2021-02-21] MEDS: SODIUM CHLORIDE 0.9% IV 1,000 ML 125 ML IV CONT (04:16)
[2021-02-21 06:11] LABS: Basophils Percent Auto 0.1 % (0.2-1.2); Eosinophils Percent Auto 0.1 % (0-4.4); Hematocrit 41.5 % (42.0-52.0); Hemoglobin 13.5 g/dL (14.0-18.0); Immature Granulocyte Absolute 0.06 K/mm3 (0.00-0.031); Immature Granulocyte Percent A 0.7 % (0-0.5); Immature Platelet Fraction Pct 6.5 % (0.9-11.2); Lymphocytes Absolute Auto 0.72 K/mm3 (0.9-3.2); Lymphocytes Percent Auto 8.7 % (18.3-44.2); Mean Corpuscular HGB Conc 32.5 g/dl (32-36); Mean Corpuscular Hemoglobin 30.8 pg (26-34); Mean Corpuscular Volume 94.7 fl (80-100); Mean Platelet Volume 11.9 fl (7.4-10.4); Monocytes Absolute Auto 0.8 K/mm3 (0.1-0.6); Monocytes Percent Auto 9.9 % (2.6-8.5); Neutrophils Absolute Auto 6.7 K/mm3 (1.3-6.7); Neutrophils Percent Auto 80.5 % (45.5-73.1); Platelet Count Result 124 k/mm3 (150-375); Red Blood Count 4.38 M/mm3 (4.6-6.20); Red Cell Distribution Width 13.2 % (11.5-14.5); White Blood Count 8.3 K/mm3 (4.5-10.0)
[2021-02-21 06:18] LABS: Anion Gap 2 mmol/L (8-16); Blood Urea Nitrogen 27 mg/dL (9-20); Calcium 8.4 mg/dL (8.4-10.2); Carbon Dioxide 34 mmol/L (22-30); Chloride 101 mmol/L (98-107); Estimated CRCL calculation 80 ml/min; Estimated Glomerular Filt Rate > 60; Glucose 137 mg/dL (65-110); Potassium 3.8 mmol/L (3.4-5.0); Sodium 137 mmol/L (137-145)
[2021-02-21 08:00] VITALS: O2SAT 93
[2021-02-21] MEDS: KCL 20 MEQ/D5/0.9% SOD CHL 1,000 ML 70 ML IV CONT (09:20)
[2021-02-21] MEDS: PANTOPRAZOLE SODIUM IV 40 MG VIAL IV PUSH (09:21)
--- NOTE | 2021-02-21 10:01 | PM.IMPN ---
Progress Note: A&P Assessment and Plan (1) Small bowel obstruction: Code(s): K56.609 - Unspecified intestinal obstruction, unspecified as to partial versus complete obstruction Status: Acute Assessment and Plan: Patient presents to the ED with complaints of abdominal pain. CT Abd/Pelvis showing dilated small bowel with intraluminal filling defect at transition point, could be gallstone ileus or obstruction from other foreign body. GI and GS consulted. SBFT showing SBO. GI felt this was too distal to reach endoscopically. Repeat imaging continues to show SBO so patient was brought to the OR and underwent exploratory laparotomy with small-bowel resection of approximately 10 cm on 02/20/21. Continue routine post-operative care. Pain management. IS. Increase activity. Remove Mahan. Add PPI. Abx per General Surgery. (2) Hypoxia: Code(s): R09.02 - Hypoxemia Status: Acute Assessment and Plan: Patient had O2 requirement post-op period and felt related to atelectasis. Patient still requiring O2 at 3L at the time of my visit. He does not require O2 at home. Will increase activity as tolerated. Encouraged IS use. Check CXR tomorrow if persistent hypoxia. (3) Atrial fibrillation: Code(s): I48.91 - Unspecified atrial fibrillation Status: Acute Assessment and Plan: No EKGs or Echo performed here. Heart rate remains well controlled. Metoprolol and Eliquis on hold due to surgery and NPO status. Resume metoprolol when he can eat. Hold Eliquis and resume when appropriate. Continue Labetalol IV. [id number] at least 4. HAS-BLED 1. He is probably high risk for bleeding from the surgery with adding anticoagulation. Bridging recommended with [id number] 5 or 6. Will discuss with GS but hold off for now on full AC. Add Lovenox for DVT prophylaxis. (4) History of TIA (transient ischemic attack): Code(s): Z86.73 - Personal history of transient ischemic attack (TIA), and cerebral infarction without residual deficits Status: Acute Assessment and Plan: Hx of TIA 5 years ago without recurrence. As above. Continue Eliquis when appropriate. (5) Hypertension: Code(s): I10 - Essential (primary) hypertension Status: Acute Assessment and Plan: Patient's blood pressure was reviewed on 02/21 Blood pressure remains well controlled. Will continue current medications as Labetalol IV. Resume home blood pressure medications when able. (6) Hyperlipidemia: Code(s): E78.5 - Hyperlipidemia, unspecified Status: Acute Assessment and Plan: Stable. Continue home statin when able. (7) AAA (abdominal aortic aneurysm): Code(s): I71.4 - Abdominal aortic aneurysm, without rupture Status: Acute Assessment and Plan: MRI Lumbar spine in November 2020 showing 4.0cm AAA (Ao US in November not accurate per radiologist). CT here again showing AAA about 4cm with recommendation for 1 year followup. (8) DVT prophylaxis: Code(s): Z29.9 - Encounter for prophylactic measures, unspecified Status: Acute Assessment and Plan: SCDs; add Lovenox Subjective Date/time seen: 02/21/21 10:01 Interval history: 71yo male with AFib, HTN and HLD here for abdominal pain and found to have SBO. Pain about 5/10 but tolerable. No CP. Using the IS frequently and up to 1500mL. Not been out of bed yet. No flatus or BMs. No issues overnight per RN. patient does have emphysema has inhaler at home but he is not sure of the name of the inhaler. He smoked 2-3 packs a day for 37 years in 2002. Exam Narrative: AF 97.0 144/90 87 18 96% 3L Gen - NARD lying semirecumbent in bed HEENT - NGT secured with brown fluid in canister Chest - decreased breath sounds in the flanks. Clear anteriorly. Normal respiratory rate CV - irregularly irregular Abd - Soft. Midline dressing clean, dry and intact. quiet - Mahan secured draining clear yellow urine Ext - No
--- NOTE | 2021-02-21 10:23 | PM.PNGS ---
Progress Note: A&P Assessment and Plan (1) Small bowel obstruction: Code(s): K56.609 - Unspecified intestinal obstruction, unspecified as to partial versus complete obstruction Status: Acute Assessment and Plan: doing well, cont NG decompression, await bowel fxn, PT/OT, OOB/IS Subjective Subjective Date/Time Seen: 02/21/21 10:23 feels ok, up to chair this am, [place] out Review of Systems Review of Systems: All systems reviewed & are unremarkable except as noted in HPI and below Exam Const: General: cooperative, comfortable and no acute distress Nutritional Appearance: obese Orientation/consciousness: patient oriented x3 Resp: Effort & Inspection: normal respiratory effort Auscultation: clear to auscultation bilaterally Cardio: Rate: regular rate Rhythm: regular rhythm GI: Inspection: normal to inspection, distended and incision GI Palp: Yes Soft to palpation, Yes Tenderness to palpation present (GI) and No Guarding due to palpation present (GI) Other: soft, sl dist, nathalia TTP, incision C/D/I Objective Data Vital Signs Vital Signs: Vital Signs - 24 hr 02/20/21 11:22 02/20/21 11:35 02/20/21 11:50 Temperature 36.6 C Pulse Rate 94 88 85 Respiratory Rate 18 18 18 Blood Pressure 161/127 H 160/100 H 147/87 H Pulse Oximetry 99 99 99 02/20/21 12:05 02/20/21 12:35 02/20/21 12:50 Temperature Pulse Rate 80 77 83 Respiratory Rate 12 20 20 Blood Pressure 122/95 H 122/84 130/88 Pulse Oximetry 94 94 92 02/20/21 13:15 02/20/21 13:30 02/20/21 14:00 Temperature 36.9 C 36.9 C 37.1 C Pulse Rate 91 83 107 H Respiratory Rate 18 18 18 Blood Pressure 136/77 143/79 H 143/93 H Pulse Oximetry 92 92 92 02/20/21 15:00 02/20/21 17:10 02/20/21 17:41 Temperature 37.2 C Pulse Rate 108 H 87 Respiratory Rate 18 Blood Pressure 147/82 H Pulse Oximetry 90 91 02/20/21 20:00 02/20/21 20:26 02/21/21 04:13 Temperature 36.4 C 36.1 C L Pulse Rate 91 91 87 Respiratory Rate 16 16 18 Blood Pressure 136/88 144/90 H Pulse Oximetry 94 94 96 Intake/Output Intake/Output: Intake & Output 02/18/21 02/19/21 02/20/21 02/21/21 23:59 23:59 23:59 23:59 Intake Total 2100 4800 1100 Output Total 1200 2600 1075 Balance 900 2200 25 Meds/Results Medications: Active Medications Generic Name Dose Route Start Last Admin Trade Name Freq PRN Reason Stop Dose Admin Enoxaparin Sodium 40 mg 02/22/21 09:00 Enoxaparin 40 Mg/0.4 Ml Syringe SUB-Q DAILY SEVEN Piperacillin/Tazobactam/Dextrose 3.375 gm in 50 mls @ 100 mls/hr 02/20/21 12:00 02/21/21 06:33 Zosyn 3.375 Gm/D5w 50ml Pm IVPB Infused Q6HR SEVEN Infusion Potassium Chloride/Dextrose/Sod Cl 1,000 mls @ 70 mls/hr 02/21/21 09:00 02/21/21 09:20 Kcl 20 Meq/D5/0.9% Sod Chl IV CONT 70 mls/hr .[id number] SEVEN Administration Labetalol HCl 20 mg 02/19/21 12:00 02/21/21 05:26 Labetalol Hcl Inj 100 Mg/20 Ml Vial IV PUSH 20 mg Q6HR SEVEN Administration Morphine Sulfate 4 mg 02/19/21 09:59 02/21/21 05:31 Morphine Sulfate (*Crx) 4 Mg/Ml Inj IV PUSH 4 mg Q2H PRN Administration Pain Rated 7-10 Ondansetron HCl 4 mg 02/19/21 09:59 02/20/21 16:46 Ondansetron Inj 4 Mg/2 Ml Vial IV PUSH 4 mg Q4H PRN Administration Nausea Pantoprazole Sodium 40 mg 02/21/21 09:00 02/21/21 09:21 Pantoprazole Sodium Iv 40 Mg Vial IV PUSH 40 mg QAM SEVEN Administration Radiology Results: ITS Impressions Abdomen/Pelvis CT 02/19/21 09:03 IMPRESSION: 1. Dilated small bowel with intraluminal filling defect at transition point, could be gallstone ileus or obstruction from other foreign body. 2. Colonic and jejunal diverticulosis. 3. Couple of small renal lesions most likely hemorrhagic cyst. Ultrasound should be confirmatory. ADDENDUM: 02/20/21 1440 Correlation was made with lumbar spine MR from November. Patient had 4.0 cm lower abdominal aortic aneurysm on that examination. It still measures 4.0 cm, but
[2021-02-21] MEDS: ENOXAPARIN 40 MG/0.4 ML SYRINGE SUB-Q (11:38)
[2021-02-21 14:00] VITALS: BP 127/83; PULSE 84; RESP 16; TEMP 36.1; O2SAT 94
[2021-02-21 16:50] VITALS: O2SAT 94
[2021-02-21 18:07] VITALS: PULSE 20
[2021-02-21 20:16] VITALS: BP 159/87; PULSE 98; RESP 20; TEMP 36.2; O2SAT 92
[2021-02-22] VITALS (8 sets, daily range): BP systolic 151–165; BP diastolic 84–95; PULSE 76–107; RESP 12–17; TEMP 35.8–36.6; O2SAT 93–97
[2021-02-22] MEDS: LABETALOL HCL INJ 100 MG/20 ML VIAL 20 MG IV PUSH ×5 (00:11→23:50)
[2021-02-22 05:49] LABS: Hematocrit 44.9 % (42.0-52.0); Hemoglobin 13.9 g/dL (14.0-18.0); Mean Platelet Volume 11.5 fl (7.4-10.4); Platelet Count Result 167 k/mm3 (150-375); Red Blood Count 4.49 M/mm3 (4.6-6.20); Red Cell Distribution Width 13.4 % (11.5-14.5); White Blood Count 7.6 K/mm3 (4.5-10.0)
[2021-02-22 06:19] LABS: Anion Gap 7 mmol/L (8-16); Blood Urea Nitrogen 31 mg/dL (9-20); Calcium 8.9 mg/dL (8.4-10.2); Carbon Dioxide 37 mmol/L (22-30); Chloride 101 mmol/L (98-107); Estimated CRCL calculation 74 ml/min; Estimated Glomerular Filt Rate > 60; Glucose 138 mg/dL (65-110); Potassium 4.2 mmol/L (3.4-5.0); Sodium 145 mmol/L (137-145)
[2021-02-22] MEDS: ONDANSETRON INJ 4 MG/2 ML VIAL IV PUSH (06:41)
[2021-02-22] MEDS: ENOXAPARIN 40 MG/0.4 ML SYRINGE SUB-Q (07:59)
[2021-02-22] MEDS: PANTOPRAZOLE SODIUM IV 40 MG VIAL IV PUSH (08:00)
[2021-02-22] MEDS: MORPHINE SULFATE (*CRX) 4 MG/ML INJ IV PUSH (08:03)
--- NOTE | 2021-02-22 11:50 | PM.IMPN ---
Progress Note: A&P Assessment and Plan (1) Small bowel obstruction: Code(s): K56.609 - Unspecified intestinal obstruction, unspecified as to partial versus complete obstruction Status: Acute Assessment and Plan: Patient was brought to the OR and underwent exploratory laparotomy with small-bowel resection of approximately 10 cm on 02/20/21. Continue routine post-operative care. Pt has NG tube in situ. Continue NG tube for bowel decompression. (2) Hypoxia: Code(s): R09.02 - Hypoxemia Status: Resolved Assessment and Plan: (3) Atrial fibrillation: Code(s): I48.91 - Unspecified atrial fibrillation Status: Acute Assessment and Plan: No EKGs or Echo performed here. Heart rate remains well controlled. Metoprolol and Eliquis on hold due to surgery and NPO status. Resume metoprolol when he can eat. Hold Eliquis and resume when appropriate. Continue Labetalol IV. [id number] at least 4. (4) History of TIA (transient ischemic attack): Code(s): Z86.73 - Personal history of transient ischemic attack (TIA), and cerebral infarction without residual deficits Status: Acute Assessment and Plan: Hx of TIA 5 years ago without recurrence. As above. Continue Eliquis when appropriate. (5) Hypertension: Code(s): I10 - Essential (primary) hypertension Status: Acute Assessment and Plan: Patient's blood pressure was reviewed on 02/21 Blood pressure remains well controlled. (6) Hyperlipidemia: Code(s): E78.5 - Hyperlipidemia, unspecified Status: Acute Assessment and Plan: Stable. Continue home statin when able. (7) AAA (abdominal aortic aneurysm): Code(s): I71.4 - Abdominal aortic aneurysm, without rupture Status: Acute Assessment and Plan: MRI Lumbar spine in November 2020 showing 4.0cm AAA (Ao US in November not accurate per radiologist). CT here again showing AAA about 4cm with recommendation for 1 year followup. (8) DVT prophylaxis: Code(s): Z29.9 - Encounter for prophylactic measures, unspecified Status: Acute Assessment and Plan: SCDs; add Lovenox Subjective Date/time seen: 02/22/21 11:50 Interval history: 71yo male with AFib, HTN and HLD here for abdominal pain and found to have SBO. Admitted on wednesday sp Exploratory laparotomy, small-bowel resection on 02/20. Pt is doing well has NG tube in situ. Review of Systems Review of Systems: All systems reviewed & are unremarkable except as noted in HPI and below Exam Narrative: Vital Signs Temp Pulse Resp BP Pulse Ox 02/22/21 05:56 92 02/22/21 05:11 36.5 C 92 17 156/88 H 97 02/22/21 00:11 107 H 02/21/21 20:16 36.2 C L 98 20 159/87 H 92 02/21/21 18:07 20 L 02/21/21 16:50 94 02/21/21 14:00 36.1 C L 84 16 127/83 94 Intake and Output 02/21/21 02/22/21 02/22/21 23:59 07:59 15:59 Intake Total 1050 100 Output Total 1650 1550 1100 Balance -600 -1450 -1100 Intake: IV 1050 100 KCl 20 Meq/D5/ 0.9% Sod Chl 1, 1000
[2021-02-22] MEDS: KCL 20 MEQ/D5/0.9% SOD CHL 1,000 ML 70 ML IV CONT ×2 (14:05)
--- NOTE | 2021-02-22 15:31 | PM.PNGS ---
Progress Note: A&P Assessment and Plan (1) Small bowel obstruction: Code(s): K56.609 - Unspecified intestinal obstruction, unspecified as to partial versus complete obstruction Status: Acute Assessment and Plan: He is doing well, await bowel fxn, -- has some bowel sounds and denies nausea so this may be improving. Will try a clamping routine on the NG and if less than 200 cc out for the 1 hour on the 2nd round of 4 hour clamping the nurse know she can pull the NG tube and let patient start clear liquids. PT/OT, OOB/IS Using IS but still has some crackles at the bases of his lungs. Subjective Subjective Date/Time Seen: 02/22/21 15:31 Post Op day: 2 ( Status post short segment small bowel resection) Patient reports: no new complaints and feels better Interval history: states he has passed a little bit of flatus but no bowel movement. States he would like to have the NG tube out and is not nauseated. Review of Systems Review of Systems: All systems reviewed & are unremarkable except as noted in HPI and below Constitutional: Constitutional: Denies anorexia, Denies body ache(s), Denies chills, Denies fatigue, Denies fever(s), Denies increased appetite, Denies lethargy, Denies malaise, Reports poor appetite, Denies weakness, Denies weight gain and Denies weight loss Eyes: Eyes: Reports no additional eye complaints ENT: Reports system reviewed and no additional complaints, except as documented Cardiovascular: Cardiovascular: Reports no additional cardiovascular complaints Respiratory: Respiratory: Reports no additional respiratory complaints Gastrointestinal: Gastrointestinal: Reports as per HPI, Reports abdominal pain ( Mainly incisional now), Denies belching, Reports constipation and Denies hematemesis Genitourinary: Genitourinary: Reports no additional male genitourinary complaints Musculoskeletal: Musculoskeletal: Reports no additional musculoskeletal complaints Integumentary/Breasts: Skin/Breast: Reports system reviewed and no additional complaints, except as docu Hematologic/Lymphatic: Hematologic/Lymphatic: Reports no additional hematologic/lymphatic complaints Allergic/Immunologic: Allergic/Immunologic: Reports no additional allergic/immunologic complaints Exam Const: General: cooperative, comfortable, no acute distress, well developed, alert, awake, Physically active, acute distress mild, tired appearing and uncomfortable Nutritional Appearance: obese Orientation/consciousness: patient oriented x3 Limitations: no limitations HENMT: Head: normal to inspection, No palpable skull fracture present, normocephalic and atraumatic Ears: hearing grossly normal bilaterally General nose exam: Normal external nose present Face and sinus: normal facial exam Mouth: Yes Normal oral and palatal mucosa present Eyes: General: appearance normal, both eyes and all related structures Pupils: Equal, round and reactive pupils present EOM: EOMs intact bilaterally Neck: Neck: normal visual inspection, full ROM and no lymphadenopathy Chest: Chest palpation & inspection: normal inspection of the chest Resp: Effort & Inspection: normal respiratory effort Auscultation: rhonchi lower bilaterally ( Some crackles with deep breath) Cardio: Rate: regular rate Rhythm: regular rhythm GI: Inspection: normal to inspection, distended and incision Other: soft, sl dist, nathalia TTP, incision C/D/I Skin: General skin exam: normal color and no rashes or lesions noted Neuro: General: patient oriented x3 and CN's II-XI intact bilaterally Cranial nerves: Yes Equal, round and reactive pupils present Extrem: General: normal to inspection and full ROM Objective Data Vital Signs Vital Signs: Vital Signs - 24 hr 02/21/21 16:50 02/21/21 18:07 02/21/21 20:16 Temperature 36.2 C L Pulse Rate 20 L 98 Respiratory Rate 20 Blood Pressure 159/87 H Pulse Oximetry 94 92 02/22/21 00:11 02/22/21 05:11 02/22/21 05
[2021-02-23] MEDS: KCL 20 MEQ/D5/0.9% SOD CHL 1,000 ML 70 ML IV CONT (01:28)
[2021-02-23 05:57] VITALS: PULSE 79
[2021-02-23 06:00] VITALS: BP 112/69; PULSE 79; RESP 18; TEMP 36; O2SAT 94
[2021-02-23] MEDS: PANTOPRAZOLE SODIUM IV 40 MG VIAL IV PUSH (07:57)
[2021-02-23] MEDS: ENOXAPARIN 40 MG/0.4 ML SYRINGE SUB-Q (07:57)
[2021-02-23 08:04] LABS: Glucose Point of Care 121 mg/dl (65-105)
--- NOTE | 2021-02-23 10:08 | PM.IMPN ---
Progress Note: A&P Assessment and Plan (1) Small bowel obstruction: Code(s): K56.609 - Unspecified intestinal obstruction, unspecified as to partial versus complete obstruction Status: Acute Assessment and Plan: Patient was brought to the OR and underwent exploratory laparotomy with small-bowel resection of approximately 10 cm on 02/20/21. Continue routine post-operative care. Ng removed yesterday. ADvance diet today, home tomorrow. Pt had bowel movement, pt walking in his room, tolerating clears today. (2) Hypoxia: Code(s): R09.02 - Hypoxemia Status: Resolved Assessment and Plan: (3) Atrial fibrillation: Code(s): I48.91 - Unspecified atrial fibrillation Status: Acute Assessment and Plan: No EKGs or Echo performed here. Heart rate remains well controlled. Can restart home medications. (4) History of TIA (transient ischemic attack): Code(s): Z86.73 - Personal history of transient ischemic attack (TIA), and cerebral infarction without residual deficits Status: Acute Assessment and Plan: Hx of TIA 5 years ago without recurrence. (5) Hypertension: Code(s): I10 - Essential (primary) hypertension Status: Acute Assessment and Plan: Patient's blood pressure was reviewed . (6) Hyperlipidemia: Code(s): E78.5 - Hyperlipidemia, unspecified Status: Acute Assessment and Plan: Stable. Continue home statin when able. (7) AAA (abdominal aortic aneurysm): Code(s): I71.4 - Abdominal aortic aneurysm, without rupture Status: Acute Assessment and Plan: From previous notes, MRI Lumbar spine in November 2020 showing 4.0cm AAA (Ao US in November not accurate per radiologist). CT here again showing AAA about 4cm with recommendation for 1 year followup. (8) DVT prophylaxis: Code(s): Z29.9 - Encounter for prophylactic measures, unspecified Status: Acute Assessment and Plan: SCDs add Lovenox Subjective Date/time seen: 02/23/21 10:08 Interval history: 71yo male with AFib, HTN and HLD here for abdominal pain and found to have SBO. Admitted on wednesday sp Exploratory laparotomy, small-bowel resection on 02/20. Pt is doing well Pt is on clears walking in his room. Pt had bowel movement today. NG tube out, discussed with Dr Paulson can advance diet today and discharge home tomorrow. Review of Systems Review of Systems: All systems reviewed & are unremarkable except as noted in HPI and below Exam Narrative: Vital Signs Temp Pulse Resp BP Pulse Ox 02/22/21 05:56 92 02/22/21 05:11 36.5 C 92 17 156/88 H 97 02/22/21 00:11 107 H 02/21/21 20:16 36.2 C L 98 20 159/87 H 92 02/21/21 18:07 20 L 02/21/21 16:50 94 02/21/21 14:00 36.1 C L 84 16 127/83 94 Intake and Output 02/21/21 02/22/21 02/22/21 23:59 07:59 15:59 Intake Total 1050 100 Output Total 1650 1550 1100 Balance -600 -1450 -1100 Intake: IV 1050 100 KCl 20 Meq/D5/ 0.9% Sod Chl 1, 1000
[2021-02-23] MEDS: hydroCHLOROthiazide 12.5 MG CAPSULE BY MOUTH (12:27)
[2021-02-23] MEDS: ACETAMINOPHEN 325 MG TABLET 650 MG PO ×2 (12:27→21:35)
[2021-02-23] MEDS: ATORVASTATIN 40 MG TABLET BY MOUTH (12:27)
[2021-02-23] MEDS: amLODIPine BESYLATE 2.5 MG TABLET BY MOUTH (12:27)
[2021-02-23 14:00] VITALS: BP 115/93; PULSE 83; RESP 20; TEMP 35.9; O2SAT 92
--- NOTE | 2021-02-23 14:47 | PM.PNGS ---
Progress Note: A&P Assessment and Plan (1) Small bowel obstruction: Code(s): K56.609 - Unspecified intestinal obstruction, unspecified as to partial versus complete obstruction Status: Acute Assessment and Plan: He is doing well, has bowel fxn, -- has some bowel sounds and denies nausea so this is improving. patient tolerating clear liquids since last evening. Will advance diet to soft and then low residue in view of known jejunal diverticulosis and recent small-bowel obstruction. Using IS to help his lungs. Subjective Subjective Date/Time Seen: 02/23/21 14:47 Post Op day: 3 Patient reports: no new complaints, feels better, tolerating liquids well and bowel movement Interval history: Patient up cleaning himself in the bathroom when I came by. States he had 3 bowel movements overnight. He is tolerating liquids and ready to advance diet. Review of Systems Constitutional: Constitutional: Denies anorexia, Denies body ache(s), Denies chills, Denies fever(s), Denies increased appetite, Denies lethargy, Denies malaise and Denies weakness Eyes: Eyes: Reports no additional eye complaints ENT: Reports system reviewed and no additional complaints, except as documented Cardiovascular: Cardiovascular: Reports no additional cardiovascular complaints Respiratory: Respiratory: Reports no additional respiratory complaints Gastrointestinal: Gastrointestinal: Reports abdominal pain ( Mild incisional) and Reports loose stools Genitourinary: Genitourinary: Reports no additional male genitourinary complaints Musculoskeletal: Musculoskeletal: Reports no additional musculoskeletal complaints Integumentary/Breasts: Skin/Breast: Reports system reviewed and no additional complaints, except as docu Neurologic: Reports system reviewed and no additional complaints, except as documented and Denies weakness Psychiatric: Psychiatric: Reports no additional psychiatric complaints Endocrine: Endocrine: Reports no additional endocrine complaints and Denies fatigue Hematologic/Lymphatic: Hematologic/Lymphatic: Reports no additional hematologic/lymphatic complaints Allergic/Immunologic: Allergic/Immunologic: Reports no additional allergic/immunologic complaints Exam Const: General: cooperative, comfortable, no acute distress, well developed, alert, awake and Physically active Nutritional Appearance: obese Orientation/consciousness: patient oriented x3 Limitations: no limitations HENMT: Head: normal to inspection, No palpable skull fracture present, normocephalic and atraumatic Ears: hearing grossly normal bilaterally General nose exam: Normal external nose present Face and sinus: normal facial exam Mouth: Yes Normal oral and palatal mucosa present Eyes: General: appearance normal, both eyes and all related structures Pupils: Equal, round and reactive pupils present EOM: EOMs intact bilaterally Neck: Neck: normal visual inspection, full ROM and no lymphadenopathy Chest: Chest palpation & inspection: normal inspection of the chest Resp: Effort & Inspection: normal respiratory effort Auscultation: clear to auscultation bilaterally Other: The patient states he has coughed up some phlegm feels like he is breathing better since the NG tube is out Cardio: Rate: regular rate Rhythm: regular rhythm GI: Inspection: normal to inspection and incision ( not inspected today. Dressing change yesterday.) Other: soft Skin: General skin exam: normal color and no rashes or lesions noted Neuro: General: patient oriented x3 and CN's II-XI intact bilaterally Cranial nerves: Yes Equal, round and reactive pupils present Objective Data Vital Signs Vital Signs: Vital Signs - 24 hr 02/22/21 18:26 02/22/21 21:01 02/22/21 23:48 Temperature 35.8 C L Pulse Rate 93 82 80 Respiratory Rate 16 Blood Pressure 151/84 H 157/95 H Pulse Oximetry 93 02/23/21 05:57 02/23/21 06:00 Temperature 36.0 C L Pulse Rate 79 79 Respirat
[2021-02-23] MEDS: APIXABAN 5 MG TABLET PO (17:10)
[2021-02-23 17:11] VITALS: PULSE 78
[2021-02-23] MEDS: METOPROLOL TARTRATE 50 MG TAB 100 MG BY MOUTH (17:11)
[2021-02-23] MEDS: lisinopriL 20 MG TABLET 40 MG BY MOUTH (17:12)
[2021-02-23 20:17] VITALS: BP 117/82; PULSE 84; RESP 18; TEMP 36.1; O2SAT 96
[2021-02-24] MEDS: ACETAMINOPHEN 325 MG TABLET 650 MG PO ×2 (03:35→08:22)
[2021-02-24 05:42] VITALS: BP 137/91; PULSE 66; RESP 18; TEMP 35.8; O2SAT 98
[2021-02-24 08:23] VITALS: PULSE 74
[2021-02-24] MEDS: METOPROLOL TARTRATE 50 MG TAB 100 MG BY MOUTH ×2 (08:23→16:13)
[2021-02-24] MEDS: APIXABAN 5 MG TABLET PO ×2 (08:23→16:13)
[2021-02-24] MEDS: amLODIPine BESYLATE 2.5 MG TABLET BY MOUTH (08:24)
[2021-02-24] MEDS: lisinopriL 20 MG TABLET 40 MG BY MOUTH ×2 (08:24→16:13)
[2021-02-24] MEDS: hydroCHLOROthiazide 12.5 MG CAPSULE BY MOUTH (08:24)
[2021-02-24] MEDS: ATORVASTATIN 40 MG TABLET BY MOUTH (08:24)
[2021-02-24] MEDS: PANTOPRAZOLE 40 MG TABLET PO (08:24)
[2021-02-24 08:49] LABS: Hematocrit 43.9 % (42.0-52.0); Hemoglobin 14.4 g/dL (14.0-18.0); Mean Corpuscular HGB Conc 32.8 g/dl (32-36); Mean Corpuscular Hemoglobin 30.8 pg (26-34); Mean Platelet Volume 11.2 fl (7.4-10.4); Platelet Count Result 179 k/mm3 (150-375); Red Blood Count 4.67 M/mm3 (4.6-6.20); Red Cell Distribution Width 13.2 % (11.5-14.5); White Blood Count 6.9 K/mm3 (4.5-10.0)
[2021-02-24 09:09] LABS: Anion Gap 11 mmol/L (8-16); Blood Urea Nitrogen 20 mg/dL (9-20); Calcium 8.7 mg/dL (8.4-10.2); Carbon Dioxide 25 mmol/L (22-30); Chloride 100 mmol/L (98-107); Estimated CRCL calculation 89 ml/min; Estimated Glomerular Filt Rate > 60; Glucose 135 mg/dL (65-110); Potassium 3.7 mmol/L (3.4-5.0); Sodium 136 mmol/L (137-145)
--- NOTE | 2021-02-24 11:31 | PM.PNGS ---
Progress Note: A&P Assessment and Plan (1) Small bowel obstruction: Code(s): K56.609 - Unspecified intestinal obstruction, unspecified as to partial versus complete obstruction Status: Acute Assessment and Plan: Tolerating low fiber diet and bowels moving. Pain controlled. Tolerating activity. Okay from a surgical standpoint to discharge the patient today. No abx needed on discharge. F/u 2 weeks. Additional Plan I have discussed the plan of care with Dr. West. Subjective Subjective Date/Time Seen: 02/24/21 11:31 Post Op day: 4 Patient reports: no new complaints, bowel movement and other (ate this morning) Interval history: Patient feeling well with no specific complaints. Denies nausea/vomiting. Still has some bloating since surgery, but improving. Pain well controlled. Has been having loose stools. Tolerated breakfast on low fiber. Review of Systems Review of Systems: All systems reviewed & are unremarkable except as noted in HPI and below Constitutional: Constitutional: Reports as per HPI, Denies chills and Denies fever(s) Cardiovascular: Cardiovascular: Reports no additional cardiovascular complaints, Denies chest pain and Denies leg edema Respiratory: Respiratory: Reports no additional respiratory complaints, Denies cough and Denies dyspnea Gastrointestinal: Gastrointestinal: Reports as per HPI, Reports abdominal pain (incisional), Denies constipation, Reports diarrhea, Denies nausea and Denies vomiting Neurologic: Reports system reviewed and no additional complaints, except as documented, Denies Abnormal speech present and Denies focal weakness Exam Const: General: comfortable, no acute distress, alert and awake Orientation/consciousness: patient oriented x3 Resp: Effort & Inspection: normal respiratory effort Auscultation: clear to auscultation bilaterally Cardio: Rate: regular rate Rhythm: abnormal rhythm irregularly irregular Peripheral pulses: dorsalis pedis present GI: Inspection: incision (Midline incision slightly pink at the bottom w/ serosang. drainage) and other (mildly distended) GI Palp: Yes Soft to palpation, Yes Tenderness to palpation present (GI) (incisional) and No Guarding due to palpation present (GI) Auscultation: normal bowel sounds Skin: General skin exam: normal color Neuro: General: moves all extremities and no focal motor deficits Speech: No Abnormal speech present Extrem: General: no clubbing, cyanosis or edema and no calf tenderness Psych: Mental Status: mental status grossly normal Insight: Good insight present (Psych) Judgement: Good judgement present (Psych) Objective Data Vital Signs Vital Signs: Vital Signs - 24 hr 02/23/21 14:00 02/23/21 17:11 02/23/21 20:17 Temperature 96.7 F L 96.9 F L Pulse Rate 83 78 84 Respiratory Rate 20 18 Blood Pressure 115/93 H 117/82 Pulse Oximetry 92 96 02/24/21 05:42 02/24/21 08:23 Temperature 96.5 F L Pulse Rate 66 74 Respiratory Rate 18 Blood Pressure 137/91 H Pulse Oximetry 98 Intake/Output Intake/Output: Intake & Output 02/21/21 02/22/21 02/23/21 02/24/21 23:59 23:59 23:59 23:59 Intake Total 2200 2038 2570 640 Output Total 2728 3400 600 400 [facility] [place] [phone] [facility] 240 Meds/Results Medications: Active Medications Generic Name Dose Route Start Last Admin Trade Name Freq PRN Reason Stop Dose Admin Acetaminophen 650 mg 02/23/21 11:48 02/24/21 08:22 Acetaminophen 325 Mg Tablet PO 650 mg Q6H PRN Administration Mild Pain (1-3) or Fever Hydrocodone Bitart/Acetaminophen 1 tab 02/23/21 14:58 Hydrocodone/Acetaminophen (*Crx) 5-325 Mg Tablet PO Q6H PRN Pain Rated 4-6 Amlodipine Besylate 2.5 mg 02/24/21 09:00 02/24/21 08:24 Amlodipine Besylate 2.5 Mg Tablet BY MOUTH 2.5 mg DAILY SEVEN Administration Apixaban 5 mg 02/23/21 17:00 02/24/21 08:23 Apixaban 5 Mg Tablet PO 5 mg BID SEVEN Administration Atorvastatin Calcium 40 mg 02/23/21 10:5
[2021-02-24 14:34] VITALS: BP 121/83; PULSE 64; RESP 16; TEMP 36.5; O2SAT 98
--- NOTE | 2021-02-24 15:57 | PM.DS ---
DS: Admitting Diagnosis Discharge Date 02/24/21 Admitting Diagnosis Abdominal pain DS: Discharge Diagnosis Discharge Diagnosis (1) Small bowel obstruction: Code(s): K56.609 - Unspecified intestinal obstruction, unspecified as to partial versus complete obstruction Status: Acute Assessment and Plan: Patient presents to the ED with complaints of abdominal pain. CT Abd/Pelvis showing dilated small bowel with intraluminal filling defect at transition point, could be gallstone ileus or obstruction from other foreign body. GI and GS consulted. SBFT showing SBO. GI felt this was too distal to reach endoscopically. Repeat imaging continues to show SBO so patient was brought to the OR and underwent exploratory laparotomy with small-bowel resection of approximately 10 cm on 02/20/21. He tolerated the procedure well. He was up ambulating. He has return of bowel function and was able to be started on oral diet. Diet was advanced which he tolerated well. Surgery followed along and felt patient was stable for discharge. Path of a segment of the small bowel showing acute mural inflammation, hemorrhage, edema and congestion with serosal congestion, focal acute inflammation and fibrous adhesions. (2) Hypoxia: Code(s): R09.02 - Hypoxemia Status: Resolved Assessment and Plan: Patient had O2 requirement post-op period and felt related to atelectasis. We increased activity as he tolerated and encouraged IS use. He was able to be weaned off oxygen. (3) Atrial fibrillation: Code(s): I48.91 - Unspecified atrial fibrillation Status: Acute Assessment and Plan: No EKGs or Echo performed here. Heart rate remained well controlled. Metoprolol and Eliquis were on hold due to surgery and NPO status. Labetalol IV started. [id number] at least 4. HAS-BLED 1. He is probably high risk for bleeding from the surgery with adding anticoagulation so he was not bridged. Lovenox added for DVT prophylaxis. With the return of bowel function, he was started back on his metoprolol and Eliquis without issue. (4) History of TIA (transient ischemic attack): Code(s): Z86.73 - Personal history of transient ischemic attack (TIA), and cerebral infarction without residual deficits Status: Acute Assessment and Plan: Hx of TIA 5 years ago without recurrence. As above. (5) Hypertension: Code(s): I10 - Essential (primary) hypertension Status: Acute Assessment and Plan: Patient's blood pressure was monitored closely and it remained well controlled. (6) Hyperlipidemia: Code(s): E78.5 - Hyperlipidemia, unspecified Status: Acute Assessment and Plan: Stable. We resumed home statin when we were able. (7) AAA (abdominal aortic aneurysm): Code(s): I71.4 - Abdominal aortic aneurysm, without rupture Status: Acute Assessment and Plan: MRI Lumbar spine in November 2020 showing 4.0cm AAA (Ao US in November not very accurate per radiologist). CT here again showing AAA about 4cm with recommendation for 1 year followup. DS: Summary Hospital Course Reason for hospitalization: 71yo male with AFib, HTN and HLD here for abdominal pain and found to have SBO. Please see H&P for details. Hospital Course: Please see above for details of hospital course Status at Discharge Cognitive/behavioral status at discharge: stable Time Spent with Patient Time attestation: Total time spent providing and/or coordinating discharge services: 32 minutes Time spent: Greater than 30 minutes Exam Narrative: AF 97.7 121/83 64 16 98% ra Gen - NARD Chest - CTA bilaterally, nml RR CV - irregular Abd - Soft, +BS, dressing clean, dry and intact but with small serous staining mid incision around the umbilicus (surgery was aware) Ext - No pedal edema Psych - normal mood and affect Skin - Warm and dry DS: Data Data Completed and Pending Completed studies during h
[2021-02-24 16:13] VITALS: PULSE 68
== END 2021-02-24 17:20 | disposition home or self-care (01) | DRG 331 ==
LOC: ANHED 07:02 → ANH3MED 10:42
PROVIDERS: Emergency Medicine; Family Medicine; Surgery; Admitting Provider Internal Medicine Nephrology; Emergency Provider Emergency Medicine; PCP Internal Medicine; Visit Provider Internal Medicine
PROC: 0DB80ZZ Excision of Small Intestine, Open Approach (ICD-10-PCS; CPT 49000; principal; 2021-02-20 14:00)
DX: K56.609 Unspecified intestinal obstruction, unspecified as to partial versus complete obstruction (principal); R09.02 Hypoxemia; K57.10 Diverticulosis of small intestine without perforation or abscess without bleeding; I48.91 Unspecified atrial fibrillation; J43.9 Emphysema, unspecified; I10 Essential (primary) hypertension; E78.5 Hyperlipidemia, unspecified; I71.4 Abdominal aortic aneurysm, without rupture; Z79.01 Long term (current) use of anticoagulants; Z79.899 Other long term (current) drug therapy; Z86.73 Personal history of transient ischemic attack (TIA), and cerebral infarction without residual deficits; Z87.891 Personal history of nicotine dependence
CPT/HCPCS: 36415; 74018; 74177; 74250; 80048; 80053; 81001; 82948; 83690; 85025; 85027; 85055; 85610; 85730; 88307; 96361; 96374; 96375; 97110; 97116; 97161; 97530; 99285; A9270; C9113; G0378; J0131; J0690; J1170; J1650; J2250; J2270; J2405; J2543; J3010; J3480; J7030; J7120; Q9967

== ENCOUNTER 2023-06-30 08:41 | Outpatient (CLI) | payer MEDICARE, OTHER, SELFPAY ==
--- NOTE | ~2023-06-30 | US_ITS ---
EXAMINATION: US carotid duplex BI DATE: 06/30/2023 09:17 INDICATION: Carotid stenosis TECHNIQUE: Grayscale, color Doppler, and pulsed Doppler images of the cervical carotid arteries were obtained. The degree of vessel stenosis is placed in one of the following categories: normal, <50%, 5 0-69%, >=70% but less than near-occlusion, near-occlusion, or total occlusion. Note that percent sten osis relative to normal distal artery lumen diameter is indirectly measured from velocity measurement s as described by Lukas, et al. Radiology 2003; 229:340-346. COMPARISON: 06/01/2020 FINDINGS: RIGHT: The right common carotid artery (CCA) peak systolic velocity (PSV) is 61 cm/s. The right internal car otid artery (ICA) PSV is 61 cm/s. The right ICA end-diastolic velocity (EDV) is 27 cm/s. The right IC A/CCA PSV ratio is 1.0. Grayscale and color Doppler images yield an estimate of <50% diameter reducti on from plaque in the ICA. The external carotid artery (ECA) PSV is 81 cm/s. There is antegrade flow in the right vertebral artery. LEFT: The left CCA PSV is 63 cm/s. The left ICA PSV is 106 cm/s. The left ICA EDV is 53 cm/s. The left ICA/ CCA PSV ratio is 1.7. Grayscale and color Doppler images yield an estimate of <50% diameter reduction from plaque in the ICA. The left ICA is tortuous distal to the bulb. The ECA PSV is 64 cm/s. There i s antegrade flow in the left vertebral artery. IMPRESSION: 1. <50% stenosis in the right internal carotid artery. 2. <50% stenosis in the left internal carotid artery. 3. Cardiac arrhythmia is present. Reviewed, dictated and finalized at location A. [employer]
== END 2023-06-30 08:42 | disposition home or self-care (01) ==
LOC: CHSIMG 08:43
PROVIDERS: PCP Internal Medicine; Visit Provider Internal Medicine
DX: I65.23 Occlusion and stenosis of bilateral carotid arteries (principal); I49.9 Cardiac arrhythmia, unspecified
CPT/HCPCS: 93880

== ENCOUNTER 2023-09-10 15:42 | Outpatient (CLI) | payer MEDICARE, SELFPAY ==
[2023-09-10 16:04] LABS: Basophils Absolute Auto 0.02 K/mm3 (0.00-0.10); Basophils Percent Auto 0.3 % (0.0-1.0); Eosinophils Absolute Auto 0.12 K/mm3 (0.02-0.50); Eosinophils Percent Auto 1.9 % (1.0-6.0); Hematocrit 48.4 % (37.0-46.0); Hemoglobin 15.8 g/dL (12.4-15.3); Immature Granulocyte Absolute 0.02 K/mm3 (0.00-0.00); Immature Granulocyte Percent A 0.3 % (0.0-0.0); Lymphocytes Absolute Auto 0.95 K/mm3 (1.10-4.50); Lymphocytes Percent Auto 15.2 % (18.0-42.0); Mean Corpuscular HGB Conc 32.6 g/dL (32-36); Mean Corpuscular Hemoglobin 30.7 pg (27.0-31.0); Mean Platelet Volume 11.1 fl (8.7-11.0); Monocytes Absolute Auto 0.61 K/mm3 (0.10-0.90); Monocytes Percent Auto 9.8 % (2.0-11.0); Neutrophils Absolute Auto 4.52 K/mm3 (1.70-7.20); Neutrophils Percent Auto 72.5 % (50.0-70.0); Platelet Count Result 188 K/mm3 (150-420); Red Blood Count 5.15 M/mm3 (4.70-6.10); Red Cell Distribution Width 13.4 % (11.6-14.4); White Blood Count 6.2 K/mm3 (4.8-10.8)
[2023-09-10 16:43] LABS: Alanine Aminotransferase 60 U/L (16-63); Albumin Level 4.2 g/dL (3.4-5.0); Alkaline Phosphatase 67 U/L (46-116); Anion Gap 12 mmol/L (4-12); Aspartate Amino Transferase 25 U/L (15-37); Bilirubin,Total 0.9 mg/dL (0.00-1.00); Blood Urea Nitrogen 27 mg/dL (7-18); Calcium 8.7 mg/dL (8.5-10.1); Carbon Dioxide 22 mmol/L (21-32); Chloride 103 mmol/L (98-108); Estimated Glomerular Filt Rate > 60; Glucose 97 mg/dL (70-99); Osmolality Calculated 289 mOsm/kg (285-295); Potassium 4.6 mmol/L (3.5-5.1); Sodium 137 mmol/L (136-145); Total Protein 6.8 g/dL (6.4-8.2)
== END 2023-09-10 15:43 | disposition home or self-care (01) ==
LOC: CHSLAB 15:44
PROVIDERS: PCP Internal Medicine; Visit Provider Internal Medicine
DX: K52.9 Noninfective gastroenteritis and colitis, unspecified (principal)
CPT/HCPCS: 36415; 80053; 85025

== ENCOUNTER 2023-09-11 08:53 | Outpatient (CLI) | payer MEDICARE, SELFPAY ==
[2023-09-11 09:53] LABS: Toxigenic C. Diff NEGATIVE (NEGATIVE)
[2023-09-15 15:43] LABS: Norovirus RNA PCR, Stool NOT DETECTED
== END 2023-09-11 08:54 | disposition home or self-care (01) ==
PROVIDERS: PCP Internal Medicine; Visit Provider Internal Medicine
DX: K52.9 Noninfective gastroenteritis and colitis, unspecified (principal)
CPT/HCPCS: 87045; 87177; 87209; 87427; 87449; 87493; 87798

== ENCOUNTER 2024-05-24 10:57 | Outpatient (CLI) | payer MEDICARE, SELFPAY ==
[2024-05-24 11:16] LABS: Add Urine Microscopic? NO; Appearance Urine Clear (Clear); Basophils Absolute Auto 0.03 K/mm3 (0.00-0.10); Basophils Percent Auto 0.5 % (0.0-1.0); Bilirubin Urine Negative (Negative); Blood Urine Negative (Negative); Color Urine Yellow (Yellow); Eosinophils Absolute Auto 0.19 K/mm3 (0.02-0.50); Eosinophils Percent Auto 2.9 % (1.0-6.0); Glucose Urine UA Negative (Negative); Hematocrit 44.6 % (37.0-46.0); Hemoglobin 15.1 g/dL (12.4-15.3); Immature Granulocyte Absolute 0.03 K/mm3 (0.00-0.00); Immature Granulocyte Percent A 0.5 % (0.0-0.0); Ketones Urine Negative (Negative); Leukocyte Esterase Ur Negative LEU/UL (Negative); Lymphocytes Absolute Auto 1.11 K/mm3 (1.10-4.50); Lymphocytes Percent Auto 17.1 % (18.0-42.0); Mean Corpuscular HGB Conc 33.9 g/dL (32-36); Mean Corpuscular Hemoglobin 30.9 pg (27.0-31.0); Mean Corpuscular Volume 91.4 fL (78.0-102.0); Mean Platelet Volume 10.8 fl (8.7-11.0); Monocytes Absolute Auto 0.48 K/mm3 (0.10-0.90); Monocytes Percent Auto 7.4 % (2.0-11.0); Neutrophils Absolute Auto 4.64 K/mm3 (1.70-7.20); Neutrophils Percent Auto 71.6 % (50.0-70.0); Nitrate Urine Negative (Negative); Platelet Count Result 161 K/mm3 (150-420); Protein Urine Negative (Negative); Red Blood Count 4.88 M/mm3 (4.70-6.10); Red Cell Distribution Width 13.3 % (11.6-14.4); Urobilinogen Urine 0.2 mg/dL (0.2-1.0); White Blood Count 6.5 K/mm3 (4.8-10.8)
[2024-05-24 11:25] LABS: Creatinine Urine 147.04 mg/dL (40-278); MALB Creatinine Ratio 11.2 mg/g (0-30); Microalbumin Urine Random 16.5 mg/L
[2024-05-24 11:59] LABS: Hemoglobin A1C 5.6 % (<5.7)
[2024-05-24 12:18] LABS: Alanine Aminotransferase 34 U/L (16-63); Albumin Level 4.1 g/dL (3.4-5.0); Alkaline Phosphatase 75 U/L (46-116); Anion Gap 7 mmol/L (4-12); Aspartate Amino Transferase 16 U/L (15-37); Bilirubin,Total 0.9 mg/dL (0.00-1.00); Blood Urea Nitrogen 23 mg/dL (7-18); Calcium 9.4 mg/dL (8.5-10.1); Carbon Dioxide 32 mmol/L (21-32); Chloride 101 mmol/L (98-108); Cholesterol 112 mg/dL (0-200); Creatine Kinase 122 U/L (39-308); Estimated Glomerular Filt Rate > 60; Free T3 2.81 pg/mL (2.18-3.98); Glucose 96 mg/dL (70-99); HDL Direct 39 mg/dL (40-60); LDL Cholesterol Calculated 51 mg/dL (<130); Osmolality Calculated 293 mOsm/kg (285-295); Potassium 4.6 mmol/L (3.5-5.1); Sodium 140 mmol/L (136-145); Thyroid Stimulating Hormone 1.69 uIU/mL (0.36-3.74); Total Protein 6.7 g/dL (6.4-8.2); Triglycerides 108 mg/dL (0-150)
[2024-05-25 07:46] LABS: Free T4 Free Thyroxine 0.91 ng/dL (0.76-1.46); NT Pro B Type Natriuretic Pept 800 pg/mL (0-125)
== END 2024-05-24 10:58 | disposition home or self-care (01) ==
LOC: CHSLAB 11:01
PROVIDERS: PCP Internal Medicine; Visit Provider Internal Medicine
DX: I10 Essential (primary) hypertension (principal); R73.01 Impaired fasting glucose; E78.2 Mixed hyperlipidemia; N39.0 Urinary tract infection, site not specified; R06.02 Shortness of breath
CPT/HCPCS: 36415; 80053; 80061; 81003; 82043; 82550; 83036; 83880; 84439; 84443; 84481; 85025